=== PATIENT | female | born 1985 | race Caucasian/White ===

== ENCOUNTER 2017-07-04 19:45 | Emergency (ER) | END 2017-07-04 22:57 | disposition home or self-care (01) | DX: R10.9 Unspecified abdominal pain (principal); R59.0 Localized enlarged lymph nodes; B96.89 Other specified bacterial agents as the cause of diseases classified elsewhere | CPT/HCPCS: 74177; 80053; 81001; 83690; 84703; 85025; 87086; 96360; 99284; J7030; Q9967 ==